=== PATIENT | female | born 1960 | race African-American/Black ===

== ENCOUNTER → 2019-02-10 | Outpatient (CLI) | payer OTHER ==
[~2019-02-10] MED LIST: AMLODIPINE BESY10 MG PO; CATAPRES-TTS 10.1 MG TD; CLONIDINE PO; FUROSEMIDE 40 M40 M1 PO; K-DUR10 ME1 PO; LISINOPRIL20 MG PO; PRAVASTATIN SOD20 MG PO
== END ==
LOC: M.RAD 13:52
DX: Z12.31 Encounter for screening mammogram for malignant neoplasm of breast (principal)

== ENCOUNTER → 2020-02-11 | Outpatient (CLI) | payer OTHER | LOC: M.RAD 10:20 | PROVIDERS: ATTEND Family Medicine | DX: Z12.31 Encounter for screening mammogram for malignant neoplasm of breast (principal) ==